=== PATIENT | male | born 1985 | race Caucasian/White ===

== ENCOUNTER 2019-11-29 10:32 | Emergency (ER) | payer BC, SELFPAY ==
[2019-11-29 10:36] VITALS: BP 137/74; PULSE 118; RESP 16; TEMP 36.6; O2SAT 97
[2019-11-29] MEDS: TETANUS,DIPHTHERIA,AC PERTUSSIS ADULT (0.5 ML) BOOSTRIX IM (11:43)
[2019-11-29] MEDS: HYDROcodone/acetaminophen (*CRX) 7.5-325 MG TABLET 1 TAB PO (11:43)
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
== END 2019-11-29 13:14 | disposition home or self-care (01) ==
PROVIDERS: Emergency Provider Emergency Medicine
DX: S91.301A Unspecified open wound, right foot, initial encounter (principal); Z23 Encounter for immunization; W22.8XXA Striking against or struck by other objects, initial encounter
CPT/HCPCS: 11000; 90471; 90715; 99283; A9270

== ENCOUNTER 2023-12-04 09:19 | Outpatient (CLI) | payer BC, SELFPAY ==
--- NOTE | ~2023-12-04 | XR_ITS ---
Clinical Indication: Right rib pain PA and lateral views of the chest: Comparison: 06/21/2009 Findings: The lungs are clear, without evidence of focal consolidation or pleural effusion. Cardiome diastinal silhouette is within normal limits. Bones and soft tissues are unremarkable. Impression: Normal chest. Reviewed, dictated and finalized at location . Impression: Normal chest.
--- NOTE | ~2023-12-04 | US_ITS ---
Abdominal Sonogram: Real-time sonographic imaging of the abdomen was performed. Clinical History: Abdominal pain Findings: The liver appears normal with no evidence of mass lesion or bile duct dilatation. Main por lachelle vein demonstrates normal direction of flow. The spleen is normal in size without evidence of foca l lesion. The gallbladder is well distended, and appears normal with no evidence of gallstone or wal l thickening. The common bile duct measures 3 mm. The visualized pancreas, aorta, and IVC are unrema rkable. The right kidney measures 12.0 cm in length and the left kidney measures 10.8 cm. There is no hydronephrosis or renal calculus. Impression: Unremarkable abdominal ultrasound. Reviewed, dictated and finalized at location . Impression: Unremarkable abdominal ultrasound.
== END 2023-12-04 09:20 | disposition home or self-care (01) ==
PROVIDERS: PCP Emergency Medicine; Visit Provider Emergency Medicine
DX: R07.82 Intercostal pain (principal); R10.84 Generalized abdominal pain
CPT/HCPCS: 71046; 76700

== ENCOUNTER 2023-12-13 00:27 | Day surgery (SDC) | payer BC, SELFPAY ==
[2023-12-02 10:46] VITALS: BMI 25.9
[2023-12-13 08:40] VITALS: BP 100/74; PULSE 125; RESP 18; TEMP 36.9; O2SAT 100
[2023-12-13] MEDS: LACTATED RINGERS 1,000 ML 150 ML IV CONT (08:46)
[2023-12-13 08:51] VITALS: PULSE 114
--- NOTE | 2023-12-13 08:58 | PM.HPGS ---
History of Present Illness History of Present Illness Consent: Risks, benefits, and alternatives have been discussed and questions answered. Patient agrees to proceed with procedure. Chief complaint: Melena, Constipation, GERD Narrative: Markie Coello Jr. is a 38 year old male here for first egd and colonoscopy, h/o GERD on nexium for years, also constipation and small amount of blood after wiping. Review of Systems Review of Systems: All systems reviewed & are unremarkable except as noted in HPI and below PMFSH Past Medical History Medical History (Updated 12/13/23 @ 08:59 by Joe Cifuentes MD) GERD (gastroesophageal reflux disease) Rectal bleeding Social History Social History Smoking status: Current every day smoker Tobacco type: cigarettes Drinks per week: 10 Living arrangements: with friend(s) Spiritual care concerns: No Meds Home Medications and Allergies Home Medications Medication Instructions Recorded Confirmed Type esomeprazole magnesium 40 mg 40 mg PO DAILY 12/02/23 12/13/23 History capsule,delayed release (Nexium) multivitamin 1 tablet PO DAILY 12/02/23 12/13/23 History psyllium husk 0.4 gram capsule 0.4 g PO DAILY 12/02/23 12/13/23 History (Metamucil) Allergies Allergy/AdvReac Type Severity Reaction Status Date / Time NKDA Allergy Mild Drowsy Uncoded 12/13/23 08:36 Vital Signs Vital Signs - 24 hr 12/13/23 08:40 12/13/23 08:51 Temperature 98.5 F Pulse Rate 125 H 114 H Respiratory Rate 18 Blood Pressure 100/74 Pulse Oximetry 100 Oxygen Delivery Room Air Exam Const: General: comfortable and no acute distress HENMT: Face/Nose/Sinus: Normal nares present Eyes: General: appearance normal, both eyes and all related structures Neck: Neck: no JVD Resp: Auscultation: clear to auscultation bilaterally Cardio: Rate: regular rate Rhythm: regular rhythm GI: Inspection: non-distended GI Palp: Yes Soft to palpation Skin: General skin exam: normal color Neuro: General: gait normal Speech: normal speech Extrem: General: normal to inspection Psych: Mental Status: mental status grossly normal Assessment and Plan Assessment and plan (1) GERD (gastroesophageal reflux disease): Code(s): K21.9 - Gastro-esophageal reflux disease without esophagitis Status: Acute Assessment and Plan: egd with bx on ppi (2) Rectal bleeding: Code(s): K62.5 - Hemorrhage of anus and rectum Status: Acute Assessment and Plan: colonoscopy
--- NOTE | 2023-12-13 09:01 | WPDANESEPPF ---
Anes - Initial Pre Proc Eval Procedure: Operation Date: 12/13/23 10:00 Proposed Procedures p Esophagogastroduodenoscopy & Colonoscopy - Joe Cifuentes MD Date/Time: 12/13/23 09:01 Surgeon: Joe Cifuentes MD Pre Op Diagnosis: Melena, Constipation, GERD Patient Data Age: 38 Gender: M Height: 1.78 m Weight: 78.3 kg Last Vital Signs Temp 36.9 C 12/13/23 08:40 Pulse 114 H 12/13/23 08:51 Resp 18 12/13/23 08:40 BP 100/74 12/13/23 08:40 Pulse Ox 100 12/13/23 08:40 O2 Del Method Room Air 12/13/23 08:40 Allergies Allergy/AdvReac Type Severity Reaction Status Date / Time NKDA Allergy Mild Drowsy Uncoded 12/13/23 08:36 Home Medications Medication Instructions Recorded Confirmed Type esomeprazole magnesium 40 mg 40 mg PO DAILY 12/02/23 12/13/23 History capsule,delayed release (Nexium) multivitamin 1 tablet PO DAILY 12/02/23 12/13/23 History psyllium husk 0.4 gram capsule 0.4 g PO DAILY 12/02/23 12/13/23 History (Metamucil) Patient hx anesthesia problems: none Family hx anesthesia problems: none Results Review: All pre-operative results and documents have been reviewed as part of the pre-operative evaluation. REPLACED BY [facility] Past Medical History Medical History GERD (gastroesophageal reflux disease) Rectal bleeding Social History Social History Smoking status: Current every day smoker Tobacco type: cigarettes Drinks per week: 10 Living arrangements: with friend(s) Spiritual care concerns: No Anes - Eval Final PreProcedure Day of Procedure 12/13/23 09:01 Patient weight: normal Heart: regular rate and rhythm Lungs: clear to auscultation Airway: Mallampati scale class 1 Neurological: alert and oriented Last oral intake: >/= 8 hours ASA classification: II Emergent: no Anesthetic plan: proceed Anesthesia type and monitoring: general GIVS and standard monitoring Results Review: All pre-operative results and documents have been reviewed as part of the pre-operative evaluation. Informed Consent: The patient's anesthetic plan and its attendant risks and benefits were discussed with the patient/family/POA. Questions were solicited and answers provided to the satisfaction of the patient/family/POA.
--- NOTE | 2023-12-13 09:15 | SUR.OPER ---
[facility] [phone] [place] [id number]
[2023-12-13 09:27] VITALS: BP 89/61; PULSE 91; RESP 18; O2SAT 97
[2023-12-13 09:37] VITALS: BP 99/61; PULSE 87; RESP 19; O2SAT 97
[2023-12-13 09:47] VITALS: BP 95/68; PULSE 82; RESP 14; O2SAT 97
== END 2023-12-13 10:07 | disposition home or self-care (01) ==
PROVIDERS: PCP Emergency Medicine; Visit Provider Internal Medicine Gastroenterology
PROC: 0DJ08ZZ Inspection of Upper Intestinal Tract, Via Natural or Artificial Opening Endoscopic (ICD-10-PCS; CPT 43235; principal; 2023-12-13 10:00)
DX: K59.00 Constipation, unspecified (principal); K57.30 Diverticulosis of large intestine without perforation or abscess without bleeding; K64.8 Other hemorrhoids; K29.50 Unspecified chronic gastritis without bleeding; K21.00 Gastro-esophageal reflux disease with esophagitis, without bleeding; F17.210 Nicotine dependence, cigarettes, uncomplicated
CPT/HCPCS: 45378; 43239; 88305; J2003; J2704; J7120